=== PATIENT | female | born 1940 | race Two or more races ===

== ENCOUNTER 2017-01-07 17:17 | Emergency (ER) | payer OTHER, MEDICAID ==
[~2017-01-07] VITALS: Ht 167.6 cm; Wt 81.6 kg
[2017-01-07 19:57] LABS: Basophils # (auto) 0 uL; CONDITION Y; Eosinophils # (auto) 0.3 uL; Eosinophils % (auto) 3.1 % (0.0-7.0); Hematocrit 47.7 % (36.0-46.0); Hemoglobin 15.8 g/dL (12.2-16.2); Lymphocytes # (auto) 1.6 uL; Mean Corpuscular Hemoglobin 30.1 pg (28.0-32.0); Mean Platelet Volume 8.9 fL (7.4-10.4); Monocytes # (auto) 0.9 uL; Neutrophils % (auto) 73.9 % (37.0-80.0); Platelet Count (auto) 361 10^3/uL (140-450); Red Cell Distribution Width 15.4 % (11.6-16.0); White Blood Cell 10.9 10^3/uL (4.4-10.8)
[2017-01-07] MEDS ORDERED: SODIUM CHLORIDE 0.9% 1,000 ML IV ONE (20:00)
[2017-01-07 20:10] LABS: INR 1.06 (0.9-1.15); Partial Thromboplastin Time 29.9 sec (22.64-33.71); Prothrombin Time 11.6 sec (9.37-12.3)
[2017-01-07 20:15] LABS: Albumin 2.8 g/dL (3.4-5.0); Anion Gap 7 (5-15); BUN/Creatinine Ratio 20.9; Blood Urea Nitrogen 36 mg/dL (7-18); Calcium 8.5 mg/dL (8.5-10.1); Carbon Dioxide 28 mmol/L (21-32); Chloride 110 mmol/L (98-107); GFR African American 37 mL/min; GFR Non-African American 31 mL/min; Glucose 146 mg/dL (74-106); Sodium 145 mmol/L (136-145)
[2017-01-07 20:20] LABS: Alkaline Phosphatase 98 U/L (45-117); Bilirubin, Total 0.1 mg/dL (0.2-1.0); Total Protein 8.5 g/dL (6.4-8.2)
[2017-01-07 20:22] LABS: Aspartate Aminotransferase 22 U/L (15-37); B-Type Natriuretic Peptide 128.78 pg/mL (0-100); Magnesium 2.3 mg/dL (1.6-2.6); Potassium 4.2 mmol/L (3.5-5.1)
[2017-01-07 20:38] LABS: Temperature: 22.4 C (20.0-25.0)
[2017-01-07 21:49] LABS: Urine Bilirubin Negative (Negative); Urine Blood Negative /uL (Negative); Urine Color Yellow (Yellow); Urine Glucose Normal (Normal); Urine Ketone Negative (Negative); Urine Nitrite Negative (Negative); Urine RBC <1 /hpf (0 - 4); Urine Squamous Epithelial Cell FEW /hpf (<5); Urine Urobilinogen Normal (Negative); Urine pH 5.5 (5.0-8.0)
[2017-01-07 22:11] VITALS: BP 159/91
== END 2017-01-08 00:10 | disposition home or self-care (01) ==
LOC: ER 17:41
DX: R07.81 Pleurodynia (principal); R51 Headache; N39.0 Urinary tract infection, site not specified; E11.9 Type 2 diabetes mellitus without complications; I10 Essential (primary) hypertension; W18.39XA Other fall on same level, initial encounter; Y93.9 Activity, unspecified; Y92.89 Other specified places as the place of occurrence of the external cause; Y99.8 Other external cause status
CPT/HCPCS: 36415; 70450; 71101; 80053; 81001; 83735; 83880; 84484; 85025; 85610; 85730; 96360; 96361